=== PATIENT | male | born 1995 ===

== ENCOUNTER → 2017-09-18 | Outpatient (CLI) | payer OTHER ==
--- NOTE | 2017-09-19 08:27 | RAD ---
Keven Bullard ( 22Y M ) September 18, 2017 EXAM: Right foot three x-ray views CLINICAL HISTORY: Right foot and ankle pain FINDINGS: No fracture. No dislocation. Normal bony mineralization. Metatarsals and bones of the toes appear intact. Lateral view shows intact talus and calcaneus. IMPRESSION: Negative for fracture or dislocation. Electronically signed by: Demian Irwin MD 09/19/2017 8:26 AM CDT
--- NOTE | 2017-09-19 09:59 | RAD ---
Keven Bullard ( 22Y M ) September 18, 2017 EXAM: Right ankle three x-ray views CLINICAL HISTORY: Pain in the right ankle FINDINGS: No fracture. No dislocation. Normal bony mineralization. Lateral view shows intact talus and calcaneus. IMPRESSION: Negative for fracture. Electronically signed by: Demian Irwin MD 09/19/2017 9:57 AM CDT
== END ==
LOC: RAD 08:18
PROVIDERS: ATTEND Orthopaedic Surgery
DX: M79.671 Pain in right foot (principal); M25.571 Pain in right ankle and joints of right foot